=== PATIENT | male | born 1985 | race Native Hawaiian/Other Pacific Islander ===

== ENCOUNTER 2021-02-14 18:20 | Outpatient (CLI) | payer OTHER ==
[2021-02-14 19:44] LABS: POTASSIUM 4.1 mmol/L (3.6-5.2)
== END 2021-02-14 19:56 | disposition home or self-care (01) ==
LOC: LAB 18:20
PROVIDERS: ATTEND Nurse Practitioner Family
DX: M10.9 Gout, unspecified (principal); I10 Essential (primary) hypertension; E29.1 Testicular hypofunction; R53.83 Other fatigue; R53.81 Other malaise
CPT/HCPCS: 80053; 84550